=== PATIENT | female | born 1970 | race Caucasian/White ===

== ENCOUNTER 2016-07-04 15:56 | Emergency (ER) | payer MEDICAID ==
[~2016-07-04] VITALS: Ht 175.3 cm; Wt 73.5 kg
[~2016-07-04 15:56] MED LIST: ACLI400A2 INH; ALBU6.7H INH; AMOX1TAB64 PO; ASPI-621 PO; ATOR20TA9 PO; CLON0.5T20 PO; CLOP75TA22 PO; DIVA250T4 PO; MOME110A INH; MONT4TAB7 PO; OMEP-110 PO; PARO30TA45 PO; PRAS10TA4 PO; SUMA25TA3 PO; TRAZ100T15 PO; UMEC1DIS INH; ZIPR60CA2 PO
[2016-07-04] MEDS ORDERED: ONDANSETRON 2MG/ML, 2ML IVPush ONE (16:30)
[2016-07-04] MEDS ORDERED: SODIUM CHLORIDE FLUSH 10ML SYR IVF ONE (16:30)
[2016-07-04] MEDS ORDERED: SODIUM CHLORIDE 0.9% 1,000ML IVBOLUS ONE (16:30)
[2016-07-04] MEDS ORDERED: MORPHINE SULFATE 4 MG/ML, 1ML IVPush PRN (16:30)
[2016-07-04] MEDS ORDERED: AMPICILLIN/SULBACTAM 3 GM in SODIUM CHLORIDE 0.9% 100 ML IV ONE (17:00)
[2016-07-04] MEDS ORDERED: ONDANSETRON 2MG/ML, 2ML ONE (17:11)
[2016-07-04] MEDS ORDERED: MORPHINE SULFATE 4 MG/ML, 1ML ONE (17:11)
[2016-07-04 17:14] LABS: HEMOGLOBIN 12.6 g/dL (11.7-16.4)
[2016-07-04 17:18] LABS: BLOOD UREA NITROGEN 14 mg/dL (7-18)
[2016-07-04 18:03] LABS: IS PT STATUS REG ER OR PRE ER? YES
[2016-07-04] MEDS ORDERED: DIPH,PERTUSS(ACELL),TET VAC/PF 0.5 ML IM-VACC ONE ×2 (19:30→19:47)
[2016-07-04 19:51] LABS: HIV 1&2 ANTIBODY SCREEN Nonreactive (Nonreactive); HIV-1 p24 ANTIGEN Nonreactive (Nonreactive)
[2016-07-04 19:59] VITALS: BP 96/57
== END 2016-07-04 20:01 | disposition home or self-care (01) ==
LOC: ED 16:24
DX: J02.8 Acute pharyngitis due to other specified organisms (principal); B97.89 Other viral agents as the cause of diseases classified elsewhere; J44.9 Chronic obstructive pulmonary disease, unspecified; E78.5 Hyperlipidemia, unspecified; K21.9 Gastro-esophageal reflux disease without esophagitis; J45.909 Unspecified asthma, uncomplicated; F41.1 Generalized anxiety disorder; F31.9 Bipolar disorder, unspecified; I25.2 Old myocardial infarction; H92.09 Otalgia, unspecified ear; F17.200 Nicotine dependence, unspecified, uncomplicated; Z90.710 Acquired absence of both cervix and uterus; Z88.1 Allergy status to other antibiotic agents; Z87.01 Personal history of pneumonia (recurrent)
CPT/HCPCS: 36415; 80048; 82040; 84484; 85025; 86308; 86317; 86703; 87081; 87880; 87899; 90471; 90715; 96361; 96365; 96366; 96375; 99285; J0295; J2405; J7030; G0435

== ENCOUNTER 2016-07-17 17:40 | Emergency (ER) | payer MEDICAID ==
[~2016-07-17] VITALS: Ht 175.3 cm; Wt 71.0 kg
[2016-07-17 17:41] VITALS: BP 110/71
[2016-07-17] MEDS ORDERED: KETOROLAC 30 MG/1 ML ONE (18:58)
[2016-07-17] MEDS ORDERED: METHOCARBAMOL 750 MG TABLET ONE (18:58)
[2016-07-17] MEDS ORDERED: METHOCARBAMOL 750 MG TABLET PO ONE (19:00)
[2016-07-17] MEDS ORDERED: KETOROLAC 30 MG/1 ML IM ONE (19:00)
== END 2016-07-17 20:54 | disposition home or self-care (01) ==
LOC: ED 20:38
DX: S00.93XA Contusion of unspecified part of head, initial encounter (principal); S20.212A Contusion of left front wall of thorax, initial encounter; S93.491A Sprain of other ligament of right ankle, initial encounter; S00.411A Abrasion of right ear, initial encounter; M54.6 Pain in thoracic spine; J44.9 Chronic obstructive pulmonary disease, unspecified; E78.5 Hyperlipidemia, unspecified; K21.9 Gastro-esophageal reflux disease without esophagitis; J45.909 Unspecified asthma, uncomplicated; F41.1 Generalized anxiety disorder; I25.2 Old myocardial infarction; Z90.710 Acquired absence of both cervix and uterus; Z88.1 Allergy status to other antibiotic agents; Z88.8 Allergy status to other drugs, medicaments and biological substances; Y08.89XA Assault by other specified means, initial encounter; Y93.89 Activity, other specified; Y99.8 Other external cause status; Y92.488 Other paved roadways as the place of occurrence of the external cause
CPT/HCPCS: 29515; 71020; 72110; 73610; 96372; 99284; J1885

== ENCOUNTER 2016-09-28 13:30 | Emergency (ER) | payer MEDICAID ==
[~2016-09-28] VITALS: Ht 175.3 cm; Wt 68.6 kg
[2016-09-28 13:33] VITALS: BP 101/64
[2016-09-28] MEDS ORDERED: IBUPROFEN 200 MG TABLET PO ONE (14:00)
[2016-09-28] MEDS ORDERED: IBUPROFEN 200 MG TABLET ONE (14:12)
== END 2016-09-28 14:45 | disposition home or self-care (01) ==
LOC: ED 13:58
DX: S90.31XA Contusion of right foot, initial encounter (principal); J44.9 Chronic obstructive pulmonary disease, unspecified; K21.9 Gastro-esophageal reflux disease without esophagitis; I25.2 Old myocardial infarction; W22.03XA Walked into furniture, initial encounter; Y93.89 Activity, other specified; Y92.89 Other specified places as the place of occurrence of the external cause; Y99.8 Other external cause status
CPT/HCPCS: 99284

== ENCOUNTER 2016-10-12 15:17 | Emergency (ER) | payer MEDICAID ==
[~2016-10-12] VITALS: Ht 175.3 cm; Wt 70.0 kg
[2016-10-12 15:20] VITALS: BP 102/69
[2016-10-12] MEDS ORDERED: OLAN10TA3 PO (17:04)
[2016-10-12] MEDS ORDERED: FLUT9.9S NS (17:04)
== END 2016-10-12 17:12 | disposition home or self-care (01) ==
LOC: ED 16:52
DX: J44.1 Chronic obstructive pulmonary disease with (acute) exacerbation (principal); J01.90 Acute sinusitis, unspecified; K21.9 Gastro-esophageal reflux disease without esophagitis; E78.5 Hyperlipidemia, unspecified; I25.2 Old myocardial infarction
CPT/HCPCS: 71020; 99284

== ENCOUNTER → 2016-11-16 | Outpatient (CLI) | payer MEDICAID ==
[~2016-11-16] MED LIST changes: +FLUT9.9S NS; +OLAN10TA3 PO
== END | disposition home or self-care (01) ==
LOC: CFH 11:04
PROVIDERS: ATTEND Nurse Practitioner
DX: Z12.31 Encounter for screening mammogram for malignant neoplasm of breast (principal); M85.9 Disorder of bone density and structure, unspecified
CPT/HCPCS: G0202

== ENCOUNTER 2016-11-17 09:24 | Emergency (ER) | payer MEDICAID ==
[~2016-11-17] VITALS: Ht 175.3 cm; Wt 72.5 kg
[2016-11-17 09:27] VITALS: BP 121/78
[2016-11-17] MEDS ORDERED: LORazepam 1MG TABLET PO ONE (10:00)
[2016-11-17] MEDS ORDERED: LORazepam 1MG TABLET ONE (10:01)
== END 2016-11-17 10:21 | disposition home or self-care (01) ==
LOC: ED 10:12
DX: Z76.0 Encounter for issue of repeat prescription (principal); F32.9 Major depressive disorder, single episode, unspecified; F17.210 Nicotine dependence, cigarettes, uncomplicated; E78.5 Hyperlipidemia, unspecified; F41.9 Anxiety disorder, unspecified; I25.2 Old myocardial infarction; J44.9 Chronic obstructive pulmonary disease, unspecified; K21.9 Gastro-esophageal reflux disease without esophagitis; Z95.5 Presence of coronary angioplasty implant and graft
CPT/HCPCS: 99283

== ENCOUNTER 2016-11-20 15:57 | Emergency (ER) | payer MEDICAID ==
[~2016-11-20] VITALS: Ht 175.3 cm; Wt 73.6 kg
[2016-11-20 16:19] VITALS: BP 123/78
== END 2016-11-20 17:25 | disposition home or self-care (01) ==
LOC: ED 17:15
DX: S93.602A Unspecified sprain of left foot, initial encounter (principal); L29.9 Pruritus, unspecified; K21.9 Gastro-esophageal reflux disease without esophagitis; J45.909 Unspecified asthma, uncomplicated; Z98.890 Other specified postprocedural states; Z90.710 Acquired absence of both cervix and uterus; Z88.1 Allergy status to other antibiotic agents; Z88.8 Allergy status to other drugs, medicaments and biological substances; X50.0XXA Overexertion from strenuous movement or load, initial encounter; X50.9XXA Other and unspecified overexertion or strenuous movements or postures, initial encounter; Y93.89 Activity, other specified; Y92.488 Other paved roadways as the place of occurrence of the external cause; Y99.8 Other external cause status
CPT/HCPCS: 99284

== ENCOUNTER 2016-12-16 18:51 | Emergency (ER) | payer MEDICAID ==
[~2016-12-16] VITALS: Ht 175.3 cm; Wt 74.4 kg
[~2016-12-16 18:51] MED LIST changes: -CLOP75TA22 PO; +CLOP75TA52 PO
[2016-12-16 18:52] VITALS: BP 143/90
[2016-12-16] MEDS ORDERED: IBUPROFEN 200 MG TABLET PO ONE (19:30)
[2016-12-16] MEDS ORDERED: DIPH,PERTUSS(ACELL),TET VAC/PF 0.5 ML IM-VACC ONE ×2 (19:30→19:38)
[2016-12-16] MEDS ORDERED: IBUPROFEN 200 MG TABLET ONE (19:38)
== END 2016-12-16 21:10 | disposition home or self-care (01) ==
LOC: ED 20:34
DX: S93.602A Unspecified sprain of left foot, initial encounter (principal); J44.9 Chronic obstructive pulmonary disease, unspecified; E78.5 Hyperlipidemia, unspecified; I25.2 Old myocardial infarction; K21.9 Gastro-esophageal reflux disease without esophagitis; F41.9 Anxiety disorder, unspecified; F32.9 Major depressive disorder, single episode, unspecified; F17.200 Nicotine dependence, unspecified, uncomplicated; Z88.1 Allergy status to other antibiotic agents; Z88.6 Allergy status to analgesic agent; Z88.8 Allergy status to other drugs, medicaments and biological substances; W20.8XXA Other cause of strike by thrown, projected or falling object, initial encounter; Y93.89 Activity, other specified; Y92.89 Other specified places as the place of occurrence of the external cause; Y99.8 Other external cause status
CPT/HCPCS: 90471; 90715

== ENCOUNTER 2017-01-05 06:59 | Emergency (ER) | payer MEDICAID ==
[~2017-01-05] VITALS: Ht 175.3 cm; Wt 76.8 kg
[2017-01-05 07:02] VITALS: BP 115/76
[2017-01-05] MEDS ORDERED: ONDANSETRON ODT 4 MG ONE (07:34)
[2017-01-05] MEDS ORDERED: ONDANSETRON ODT 4 MG PO ONE (08:00)
== END 2017-01-05 09:04 | disposition home or self-care (01) ==
LOC: ED 07:38
DX: B34.9 Viral infection, unspecified (principal); I25.2 Old myocardial infarction; J44.9 Chronic obstructive pulmonary disease, unspecified; E78.5 Hyperlipidemia, unspecified; K21.9 Gastro-esophageal reflux disease without esophagitis; J45.909 Unspecified asthma, uncomplicated; F17.210 Nicotine dependence, cigarettes, uncomplicated; Z88.1 Allergy status to other antibiotic agents; Z88.8 Allergy status to other drugs, medicaments and biological substances; Z59.0 Homelessness
CPT/HCPCS: 71020; 99284; Q0162

== ENCOUNTER → 2017-09-27 | Outpatient (CLI) | payer MEDICAID | END | disposition home or self-care (01) | LOC: CFH 09:59 | PROVIDERS: ATTEND Nurse Practitioner | DX: R94.6 Abnormal results of thyroid function studies (principal) | CPT/HCPCS: 76536 ==

== ENCOUNTER → 2017-12-05 | Outpatient (CLI) | payer MEDICAID ==
[~2017-12-05] MED LIST changes: +TRAZ-137 PO; -TRAZ100T15 PO
== END | disposition home or self-care (01) ==
LOC: CFH 08:05
PROVIDERS: ATTEND Internal Medicine Cardiovascular Disease
DX: I82.409 Acute embolism and thrombosis of unspecified deep veins of unspecified lower extremity (principal); M79.604 Pain in right leg; M79.605 Pain in left leg; R60.0 Localized edema
CPT/HCPCS: 93970

== ENCOUNTER 2018-04-14 12:12 | Emergency (ER) | payer MEDICAID ==
[~2018-04-14] VITALS: Ht 175.3 cm; Wt 84.9 kg
[~2018-04-14 12:12] MED LIST changes: -ASPI-621 PO; +ASPI81TA45 PO; +ATOR20TA37 PO; -ATOR20TA9 PO
[2018-04-14] MEDS ORDERED: SODIUM CHLORIDE 0.9% 1,000ML IVBOLUS ONE (14:00)
[2018-04-14 14:06] LABS: MEAN CORPUSCULAR HEMOGLOBIN 29.7 pg (27.0-34.8); MEAN CORPUSCULAR HGB CONC 33.2 g/dL (32.4-35.8); MEAN CORPUSCULAR VOLUME 89.5 fL (80-100); MEAN PLATELET VOLUME 8.1 fL (7.4-10.4); PLATELET COUNT 252 x10^3/uL (130-400); RED BLOOD COUNT 4.82 x10^6/uL (3.82-5.3); RED CELL DISTRIBUTION WIDTH 13.3 % (9.6-15.2)
[2018-04-14 14:13] LABS: ALBUMIN 3.9 g/dL (3.4-5.0); ANION GAP 8 mmol/L (5-15); CALCIUM 9.2 mg/dL (8.5-10.1); CHLORIDE 104 mmol/L (98-107)
[2018-04-14 14:17] LABS: TROPONIN I < 0.015 ng/mL (0.000-0.045)
[2018-04-14 14:29] LABS: BASOPHILS # (AUTO) 0.03 x10^3/uL (0-0.1); BASOPHILS % (AUTO) 0 % (0-1); EOSINOPHILS % (AUTO) 1 % (1-7); LYMPHOCYTES # (AUTO) 2.01 x10^3/uL (1-3.4); LYMPHOCYTES % (AUTO) 22 % (22-44); MD SCAN; MONOCYTES # (AUTO) 0.55 x10^3/uL (0.2-0.8); MONOCYTES % (AUTO) 6 % (2-9); NEUTROPHILS # (AUTO) 6.36 x10^3/uL (1.8-6.8); NEUTROPHILS % (AUTO) 70 % (42-75)
[2018-04-14 16:13] VITALS: BP 100/55
== END 2018-04-14 16:15 | disposition home or self-care (01) ==
LOC: ED 14:46
DX: S90.32XA Contusion of left foot, initial encounter (principal); R55 Syncope and collapse; I12.9 Hypertensive chronic kidney disease with stage 1 through stage 4 chronic kidney disease, or unspecified chronic kidney disease; N18.9 Chronic kidney disease, unspecified; I25.2 Old myocardial infarction; J44.9 Chronic obstructive pulmonary disease, unspecified; K21.9 Gastro-esophageal reflux disease without esophagitis; E78.5 Hyperlipidemia, unspecified; F17.200 Nicotine dependence, unspecified, uncomplicated; E87.6 Hypokalemia; Z88.2 Allergy status to sulfonamides; Z88.5 Allergy status to narcotic agent; W50.2XXA Accidental twist by another person, initial encounter; Y93.89 Activity, other specified; Y92.89 Other specified places as the place of occurrence of the external cause; Y99.8 Other external cause status
CPT/HCPCS: 36415; 73630; 80048; 82040; 84484; 85025; 93005; 96360; 99284; J7030

== ENCOUNTER 2018-08-17 15:36 | Emergency (ER) | payer MEDICAID ==
[~2018-08-17] VITALS: Ht 175.3 cm; Wt 85.0 kg
[2018-08-17 15:44] VITALS: BP 126/81
[2018-08-17] MEDS ORDERED: HYDROcodone/APAP 5/325 TABLET ONE (16:16)
[2018-08-17 16:28] LABS: BASOPHILS # (AUTO) 0.03 x10^3/uL (0-0.1); BASOPHILS % (AUTO) 0 % (0-1); EOSINOPHILS # (AUTO) 0.06 x10^3/uL (0-0.4); EOSINOPHILS % (AUTO) 1 % (1-7); LYMPHOCYTES # (AUTO) 2.27 x10^3/uL (1-3.4); LYMPHOCYTES % (AUTO) 29 % (22-44); MD NO; MEAN CORPUSCULAR HEMOGLOBIN 29.7 pg (27.0-34.8); MEAN CORPUSCULAR VOLUME 89.9 fL (80-100); MEAN PLATELET VOLUME 7.8 fL (7.4-10.4); MONOCYTES # (AUTO) 0.57 x10^3/uL (0.2-0.8); MONOCYTES % (AUTO) 7 % (2-9); NEUTROPHILS # (AUTO) 4.85 x10^3/uL (1.8-6.8); NEUTROPHILS % (AUTO) 62 % (42-75); PLATELET COUNT 255 x10^3/uL (130-400); RED BLOOD COUNT 4.65 x10^6/uL (3.82-5.3); RED CELL DISTRIBUTION WIDTH 13.5 % (9.6-15.2)
[2018-08-17] MEDS ORDERED: HYDROcodone/APAP 5/325 TABLET PO ONE (16:30)
[2018-08-17 16:40] LABS: ALBUMIN 4.3 g/dL (3.4-5.0); ANION GAP 7 mmol/L (5-15); CALCIUM 9.5 mg/dL (8.5-10.1); CHLORIDE 105 mmol/L (98-107)
[2018-08-17 16:41] LABS: CREATININE 1.01 mg/dL (0.55-1.02)
[2018-08-17 17:29] LABS: HCT (SEDRATE) 41.8 % (34.6-47.8)
[2018-08-17] MEDS ORDERED: CEFAZOLIN 1,000 MG ONE ×2 (17:47→17:53)
[2018-08-17] MEDS ORDERED: CEFAZOLIN 1,000 MG IM ONE (18:00)
--- NOTE | 2018-08-17 18:06 | NUR ---
1 ST DOSE OF ANCEF DID NOT RECONSTITUTE PROPERLY. NEW DOSE OF ANCEF REMOVED.
== END 2018-08-17 18:07 | disposition home or self-care (01) ==
LOC: ED 16:03
DX: L03.115 Cellulitis of right lower limb (principal); J44.9 Chronic obstructive pulmonary disease, unspecified; E78.5 Hyperlipidemia, unspecified; K21.9 Gastro-esophageal reflux disease without esophagitis; I10 Essential (primary) hypertension; Z87.891 Personal history of nicotine dependence
CPT/HCPCS: 29515; 36415; 73610; 80048; 82040; 84550; 85025; 85651; 96372; 99284; J0690

== ENCOUNTER 2018-08-19 17:15 | Emergency (ER) | payer MEDICAID ==
[~2018-08-19] VITALS: Ht 175.3 cm; Wt 85.5 kg
[2018-08-19 17:20] VITALS: BP 126/86
== END 2018-08-19 18:21 | disposition home or self-care (01) ==
LOC: ED 18:18
DX: L03.116 Cellulitis of left lower limb (principal); J44.9 Chronic obstructive pulmonary disease, unspecified; E78.5 Hyperlipidemia, unspecified; K21.9 Gastro-esophageal reflux disease without esophagitis; I10 Essential (primary) hypertension; I25.2 Old myocardial infarction
CPT/HCPCS: 99281

== ENCOUNTER 2019-07-31 20:20 | Emergency (ER) | payer MEDICAID, OTHER ==
[~2019-07-31] VITALS: Ht 175.3 cm; Wt 75.0 kg
[~2019-07-31 20:20] MED LIST changes: -ACLI400A2 INH; +ACLI400A3 INH; -ALBU6.7H INH; +ALBU6.7H8 INH; -TRAZ-137 PO; +TRAZ-175 PO
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
--- NOTE | 2019-07-31 21:04 | NUR ---
Patient in CT.
[2019-07-31 21:12] VITALS: BP 110/64
[2019-07-31] MEDS ORDERED: OXYcodone/APAP 5/325MG TABLET ONE (21:18)
[2019-07-31] MEDS ORDERED: DIAZEPAM 5 MG TABLET ONE (21:18)
--- NOTE | 2019-07-31 21:21 | NUR ---
Patient returned from CT. C/o 01/30 pain. Medicated patient per jun.
[2019-07-31] MEDS ORDERED: OXYcodone/APAP 5/325MG TABLET PO ONE (21:30)
[2019-07-31] MEDS ORDERED: DIAZEPAM 5 MG TABLET PO ONE (21:30)
--- NOTE | 2019-07-31 22:34 | NUR ---
Discharge instructions given. All questions and concerns addressed. Patient ambulatory with a steady gait. Belongings with patient.
== END 2019-07-31 22:36 | disposition home or self-care (01) ==
LOC: ED 21:46
DX: S16.1XXA Strain of muscle, fascia and tendon at neck level, initial encounter (principal); M25.552 Pain in left hip; I10 Essential (primary) hypertension; K21.9 Gastro-esophageal reflux disease without esophagitis; J44.9 Chronic obstructive pulmonary disease, unspecified; E78.5 Hyperlipidemia, unspecified; F17.200 Nicotine dependence, unspecified, uncomplicated; I25.2 Old myocardial infarction; I34.1 Nonrheumatic mitral (valve) prolapse; Z90.710 Acquired absence of both cervix and uterus; Z98.61 Coronary angioplasty status; V49.59XA Passenger injured in collision with other motor vehicles in traffic accident, initial encounter; Y93.89 Activity, other specified; Y92.009 Unspecified place in unspecified non-institutional (private) residence as the place of occurrence of the external cause; Y99.8 Other external cause status
CPT/HCPCS: 72125; 99284

== ENCOUNTER 2020-07-27 22:03 | Emergency (ER) | payer MEDICAID, OTHER ==
[~2020-07-27] VITALS: Ht 175.3 cm; Wt 191.0 kg
[~2020-07-27 22:03] MED LIST changes: +MONT4TAB PO; -MONT4TAB7 PO
--- NOTE | 2020-07-27 22:33 | NUR ---
PT OUT TO IMAGING WITH TECH TRANSPORTER TAKEN VIA GURNEY WITH NO SIGNS OR SYMPTOMS OF ACUTE DISTRESS NOTED RESPIRATIONS EVEN AND UNLABORED
[2020-07-27 22:42] LABS: BASOPHILS % (AUTO) 1 % (0-1); EOSINOPHILS % (AUTO) 2 % (1-7); LYMPHOCYTES % (AUTO) 40 % (22-44); MEAN CORPUSCULAR HEMOGLOBIN 29.9 pg (27.0-34.8); MEAN CORPUSCULAR HGB CONC 34.2 g/dL (32.4-35.8); MEAN PLATELET VOLUME 7.5 fL (7.4-10.4); MONOCYTES % (AUTO) 6 % (2-9); NEUTROPHILS % (AUTO) 52 % (42-75); PLATELET COUNT 205 x10^3/uL (130-400); RED BLOOD COUNT 4.43 x10^6/uL (3.82-5.3); RED CELL DISTRIBUTION WIDTH 13.7 % (9.6-15.2)
[2020-07-27 22:52] LABS: ALBUMIN 3.8 g/dL (3.4-5.0); CALCIUM 8.8 mg/dL (8.5-10.1); CREATININE 1.01 mg/dL (0.55-1.02)
[2020-07-27 22:53] LABS: MD NO
[2020-07-27 22:56] LABS: TROPONIN I < 0.015 ng/mL (0.000-0.045)
[2020-07-27 23:02] LABS: ANION GAP 3 mmol/L (5-15); CHLORIDE 109 mmol/L (98-107)
--- NOTE | 2020-07-27 23:14 | NUR ---
PT IN BED WITH NO SIGNS OR SYMPTOMS OF ACUTE DISTRESS NOTED RESPIRARTIONS EVEN AND UNLABORED MD AT BEDSIDE TO ASSESS
[2020-07-28 00:03] VITALS: BP 92/58
== END 2020-07-28 00:06 | disposition home or self-care (01) ==
LOC: ED 23:30
DX: R07.89 Other chest pain (principal); R06.02 Shortness of breath; R05 Cough; I10 Essential (primary) hypertension; K21.9 Gastro-esophageal reflux disease without esophagitis; J44.9 Chronic obstructive pulmonary disease, unspecified; E78.5 Hyperlipidemia, unspecified; R94.31 Abnormal electrocardiogram [ECG] [EKG]; F17.200 Nicotine dependence, unspecified, uncomplicated; Z90.710 Acquired absence of both cervix and uterus; Y04.8XXA Assault by other bodily force, initial encounter; Y93.89 Activity, other specified; Y92.89 Other specified places as the place of occurrence of the external cause; Y99.8 Other external cause status
CPT/HCPCS: 36415; 71046; 80048; 82040; 84484; 85025; 93005; 99285

== ENCOUNTER 2020-11-02 22:00 | Emergency (ER) | payer MEDICAID ==
[~2020-11-02] VITALS: Ht 175.3 cm; Wt 91.6 kg
--- NOTE | 2020-11-02 22:46 | NUR ---
freight dispatcher note: Pt to room from lobby.
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
[2020-11-02] MEDS ORDERED: LIDOCAINE-MPF 1%, 5ML ONE (23:09)
--- NOTE | 2020-11-02 23:18 | NUR ---
BETSY PULLED FOR PROVIDER ADMIN
[2020-11-02] MEDS ORDERED: LIDOCAINE-MPF 1%, 5ML INFIL ONE (23:30)
--- NOTE | 2020-11-02 23:51 | NUR ---
ERPA AT BEDSIDE FOR SUTURES.
[2020-11-03] MEDS ORDERED: HYDROcodone/APAP 5/325 TABLET ONE
[2020-11-03] MEDS ORDERED: HYDROcodone/APAP 5/325 TABLET PO ONE
[2020-11-03 00:03] VITALS: BP 110/63
--- NOTE | 2020-11-03 00:04 | NUR ---
ALL RESULTS ARE BACK AT THIS TIME. CHART UP FOR RECHECK. LAUNDRY LABORER PER JUN.
== END 2020-11-03 00:59 | disposition home or self-care (01) ==
LOC: ED 23:35
DX: S02.2XXA Fracture of nasal bones, initial encounter for closed fracture (principal); S01.21XA Laceration without foreign body of nose, initial encounter; I10 Essential (primary) hypertension; E78.5 Hyperlipidemia, unspecified; J44.9 Chronic obstructive pulmonary disease, unspecified; K21.9 Gastro-esophageal reflux disease without esophagitis; I25.2 Old myocardial infarction; I34.1 Nonrheumatic mitral (valve) prolapse; Z98.61 Coronary angioplasty status; Z90.710 Acquired absence of both cervix and uterus; W01.0XXA Fall on same level from slipping, tripping and stumbling without subsequent striking against object, initial encounter; Y93.89 Activity, other specified; Y92.009 Unspecified place in unspecified non-institutional (private) residence as the place of occurrence of the external cause; Y99.8 Other external cause status
CPT/HCPCS: 12051; 70486; 99284